=== PATIENT | female | born 1990 | race American Indian/Alaskan Native ===

== ENCOUNTER 2019-01-29 01:27 | Outpatient (CLI) | payer BC ==
[2019-01-29] MEDS ORDERED: LACTATED RINGERS 1,000 ML IV ONE (02:08)
[2019-01-29 02:34] LABS: Bilirubin,Urine NEG (Negative); Blood,Urine NEG (Negative); Color,Urine Yellow (Yellow); Protein,Urine <15 mg/dL mg/dL (Negative); Urobilinogen,Urine < 2.0 mg/dL (<2.0)
--- NOTE | 2019-01-29 04:08 | Ultrasound Report ---
Limited OB Ultrasound Biophysical profile HISTORY: decrease movement. TECHNIQUE: Grayscale and color Doppler imaging performed. COMPARISON: None FINDINGS: There is a single viable intrauterine gestation which is breech in presentation. Heart rate is 127 bpm. TREVIN is 14.4. Placenta is positioned anteriorly with no evidence of placenta previa. The umbilical cord appears to be wrapped around the neck. Gestational age was not determined on thi s examination. On biophysical profile, the fetus received a score of 2 for movement, posture, and TREVIN. There w as a score of 0 out of 2 for breathing movement. Total score was 6 out of 8. IMPRESSION: 1. Single viable intrauterine gestation as above. 2. Nuchal umbilical cord. 3. Biophysical profile score 6 out of 8, with no breathing movement demonstrated for at least 3 0 seconds in a 30 minute interval. Signer Name: González Argueta MD Signed: 01/29/2019 4:04 AM Workstation Name: [id number]
[2019-01-29 09:23] VITALS: BP 107/53
--- NOTE | 2019-01-29 13:35 | Ultrasound Report ---
ULTRASOUND BIOPHYSICAL PROFILE INDICATION: REPEAT BPP. well-being COMPARISON: 01/29/2019 at 0221 hours FINDINGS: heart rate is 133 beats per minute. breathing movement = 2 Gross body movement = 2 tone = 2 Qualitative amniotic fluid volume = 2 IMPRESSION: biophysical profile = 01/23 Signer Name: Srinath Cunha Jr, MD Signed: 01/29/2019 1:30 PM Workstation Name: [id number]
== END 2019-01-29 13:15 | disposition home or self-care (01) ==
LOC: TRG 01:27 → LD 04:18 → TRG 13:15
PROVIDERS: ATTEND Obstetrics & Gynecology
DX: O47.03 False labor before 37 completed weeks of gestation, third trimester (principal); Z3A.32 32 weeks gestation of pregnancy
CPT/HCPCS: 59025; 76815; 76819; 81001

== ENCOUNTER 2019-03-16 22:12 | Inpatient (IN) | payer BC ==
[2019-03-16] MEDS ORDERED: DINOPROSTONE 10 MG VAG SUPP VG ONE (23:30)
[2019-03-16 23:47] LABS: Basophils % (Auto) 0.3 % (0.0-1.8); Eosinophils # (Auto) 0.1 K/mm3 (0.0-0.4); Eosinophils % (Auto) 0.8 % (0.0-4.3); Hematocrit 33.6 % (30.3-42.9); Hemoglobin 11.5 gm/dl (10.1-14.3); Lymphocytes % (Auto) 22.9 % (13.4-35.0); Mean Corpuscular HGB Conc 34 % (30-34); Mean Corpuscular Volume 88 fl (79-97); Monocytes # (Auto) 0.8 K/mm3 (0.0-0.8); Monocytes % (Auto) 9.4 % (0.0-7.3); Platelet Count 204 K/mm3 (140-440); Red Cell Distribution Width 14.7 % (13.2-15.2)
[2019-03-17] MEDS ORDERED: LACTATED RINGERS 1,000 ML ONE ×3 (05:39→08:26)
--- NOTE | 2019-03-17 09:21 | History and Physical Report ---
History of Present Illness Date of examination: 03/17/19 Date of admission: 03/16/19 22:12 Chief complaint: 03/17/19 History of present illness: This is a 28 yo at 39 weeks for IOL for Morbid obesity. She has hx of carrier for alpha thall. 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 Past History Past Medical History: no pertinent history Past Surgical History: no surgical history [employer] History: herpes Family/Genetic History: none Social history: single. denies: smoking, alcohol abuse, prescription drug abuse - Obstetrical History Expected Date of Delivery: 03/21/19 Actual Gestation: 39 Week(s) 3 Day(s) : 4 Para: 2 Hx # Term Pregnancies: 2 Number of Pregnancies: 0 Spontaneous Abortions: 1 Induced : 0 Number of Living Children: 2 Medications and Allergies Allergies Allergy/AdvReac Type Severity Reaction Status Date / Time No Known Allergies Allergy Verified 04/29/14 07:51 Home Medications Medication Instructions Recorded Confirmed Last Taken Type Vit-Fe Fumar-FA [ 1 tab PO DAILY 01/29/19 01/29/19 01/27/19 History Vitamin] Review of Systems All systems: negative - Vital Signs Vital signs: Vital Signs Temp Resp 98.9 F 18 03/16/19 22:45 03/16/19 22:45 Temp Pulse Resp BP Pulse Ox 98.9 F 75 16 97/55 0 L 03/16/19 22:45 03/17/19 08:41 03/17/19 05:00 03/17/19 08:41 03/17/19 08:27 - Physical Exam Breasts: Positive: normal Cardiovascular: Regular rate, Normal S1 Lungs: Positive: Clear to auscultation, Normal air movement Abdomen: Positive: normal appearance, soft, normal bowel sounds. Negative: distention, tenderness, guarding Genitourinary (Female): Positive: normal external genitalia, normal perenium Vagina: Positive: normal moisture Uterus: Positive: normal size, normal contour Extremities: Positive: normal Deep Tendon Reflex Grade: Normal +2 - Obstetrical FHR: category 1 Cervical Dilatation: 0.5 Uterine Contraction Pattern: Irregular Uterine Tone Measurement Phase: Resting Results Result Diagrams: 03/16/19 23:05 Abnormal lab results 03/16/19 Range/Units 23:05 [place] % (Auto) 9.4 H (0.0-7.3) % All other labs normal. Assessment and Plan A/P HD#1 IOL for MO s/p cervidil hsv2 - no lesions expect vaginal delivery
[2019-03-17] MEDS ORDERED: LACTATED RINGERS 1,000 ML IV SCH (10:00)
[2019-03-17] MEDS ORDERED: OXYTOCIN 20 UNIT/1000ML DRIP 20 UNITS/1,000 ML BAG IV SCH (10:00)
[2019-03-17] MEDS ORDERED: OXYTOCIN DRIP 30 UNITS/500 ML BAG IV SCH (10:00)
[2019-03-17] MEDS ORDERED: BUTORPHANOL 2 MG/1 ML INJ IV PRN (10:30)
[2019-03-17] MEDS ORDERED: LIDOCAINE (2%) 20 MG/1 ML VIAL 20 ML MDV INFILTRATI NR (10:30)
[2019-03-17] MEDS ORDERED: NalbUPHINE 10 MG/1 ML INJ IV PRN (10:30)
[2019-03-17] MEDS ORDERED: TERBUTALINE 1 MG/1 ML INJ SUB-Q PRN (10:30)
[2019-03-17] MEDS ORDERED: fentaNYL 100 MCG/2 ML INJ IV PRN (10:30)
[2019-03-17] MEDS ORDERED: ePHEDrine SULFATE 50 MG/1 ML INJ IV PRN (10:30)
[2019-03-17] MEDS ORDERED: TERBUTALINE 1 MG/1 ML INJ IVP PRN (10:30)
[2019-03-17] MEDS ORDERED: ONDANSETRON 4 MG/2 ML INJ IV PRN (10:30)
[2019-03-17] MEDS ORDERED: MINERAL OIL 30 ML ORAL LIQD PO PRN (10:30)
[2019-03-17] MEDS ORDERED: AMPICILLIN/NS 2 GM/100 ML 2 GM/100 ML BAG IV ONE ×2 (11:00→17:53)
[2019-03-17] MEDS ORDERED: DINOPROSTONE 10 MG VAG SUPP VG ONE (17:50)
[2019-03-18] MEDS: AMPICILLIN/NS 1 GM/50 ML 1 GM/50 ML BAG IV SCH ×2 (10:44→14:03)
[2019-03-18] MEDS ORDERED: NALOXONE 2 MG/2 ML INJ IV PRN (12:15)
[2019-03-18] MEDS ORDERED: ePHEDrine SULFATE 50 MG/1 ML INJ IV PRN (12:15)
[2019-03-18] MEDS ORDERED: BUPIVACAINE/PF (0.25%) 2.5 MG/ML 10 ML VIAL INFILTRATI ONE (12:15)
--- NOTE | 2019-03-18 12:17 | Anesthesia Day of Surgery ---
Anesthesia Day of Surgery - Day of Surgery Patient Examined: Yes Patient H&P Reviewed: Yes Patient is NPO: Yes
[2019-03-18] MEDS ORDERED: fentaNYL-BUPIV 2 MCG/ML-0.125% 200 MCG/100 ML BAG EPIDURAL SCH (13:00)
[2019-03-18] MEDS ORDERED: diphenhydrAMINE 25 MG CAP PO PRN (13:22)
[2019-03-18] MEDS ORDERED: oxyCODONE /ACETAMINOPHEN 5-325MG TAB PO PRN (15:53)
[2019-03-18] MEDS ORDERED: ONDANSETRON 4 MG/2 ML INJ IV PRN (15:53)
[2019-03-18] MEDS ORDERED: SENNOSIDES 8.6 MG TAB PO PRN (15:53)
[2019-03-18] MEDS ORDERED: MAGNESIUM HYDROXIDE (MOM) ORAL LIQD UDC PO PRN (15:53)
[2019-03-18] MEDS ORDERED: PROMETHAZINE 25 MG RECT SUPP PR PRN (15:53)
[2019-03-18] MEDS ORDERED: HYDROCORTISONE 25 MG RECTAL SUPP PR PRN (15:53)
[2019-03-18] MEDS ORDERED: NALOXONE 0.4 MG/1 ML INJ IV PRN ×2 (15:53)
[2019-03-18] MEDS ORDERED: ACETAMINOPHEN 325 MG TAB PO PRN (15:53)
[2019-03-18] MEDS ORDERED: HYDROcodone/ACETAMINOPHEN 5-325 MG TAB PO PRN (15:53)
[2019-03-18] MEDS ORDERED: KETOROLAC 30 MG/1 ML INJ IV PRN ×2 (15:53)
[2019-03-18] MEDS ORDERED: LANOLIN/ZINC/DIMETHICONE (LANSINOH) 7 GM TP PRN (15:53)
[2019-03-18] MEDS ORDERED: SIMETHICONE 80 MG CHEW TAB PO PRN (15:53)
[2019-03-18] MEDS ORDERED: MORPHINE 2 MG/1 ML INJ IV PRN (15:53)
[2019-03-18] MEDS ORDERED: MORPHINE 4 MG/1 ML INJ IV PRN (15:53)
[2019-03-18] MEDS ORDERED: WITCH HAZEL/ GLYCERIN PAD TP PRN (15:53)
--- NOTE | 2019-03-18 15:59 | Procedure Note ---
OB Delivery Note - Delivery Date of Delivery: 03/18/19 Surgeon: SAVANA WHITT Estimated blood loss: 500cc - Vaginal Delivery presentation: vertex Delivery position: OA Delivery induction: cervidil Delivery augmentation: rupture of membranes, pitocin Delivery monitor: external FHT, external uterine Route of delivery: Delivery placenta: spontaneous Episiotomy: none Delivery laceration: none Anesthesia: none Delivery comments: of a vigorous term 6 lbs 12 oz female on 03/18/19 @ 1534. Baby placed [id number] on maternal abdomen and dried. Cord blood collected. Spontaneous delivery of placenta. Small lochia present. Fundal massage and IV PItocin bolus initiated. Fundus F/ML/U-2. Placenta intact; was sent for anylysis to assess for abruption ( many clots) Perineum intact. Patient tolerated the procedure well. Mom and baby in stable condition. - A at 1 minute: 8 at 5 minutes: 9 Gender: Female (6 pounds 12 oz)
[2019-03-18] MEDS ORDERED: OXYTOCIN 20 UNIT/1000ML DRIP 20 UNITS/1,000 ML BAG IV SCH (16:00)
[2019-03-18] MEDS ORDERED: METHYLERGONOVINE MALEATE 0.2 MG/ML VIAL IM ONE (16:28)
[2019-03-18] MEDS: IBUPROFEN 800 MG TAB PO PRN (21:20)
[2019-03-19 04:14] LABS: Hematocrit 30.7 % (30.3-42.9); Hemoglobin 10.2 gm/dl (10.1-14.3)
[2019-03-19] MEDS: IBUPROFEN 800 MG TAB PO PRN ×3 (05:26→18:04)
[2019-03-19] MEDS ORDERED: TETANUS,DIPH,PERTUSS(ACELL) VACCINE 0.5 ML SYRINGE IM ONE (06:00)
--- NOTE | 2019-03-19 07:54 | Progress Note ---
Assessment and Plan PPD1 s/p One elevated BP , mild range, all else wnl Mild anemia Anticipate d/c to home tomorrow Subjective - Subjective Date of service: 03/19/19 Principal diagnosis: Interval history: Pt is PPD1 s/p . She had one mild range elevated blood pressure reading , all else wnl. Patient reports: appetite normal, voiding normally, pain well controlled, ambulating normally [place]: doing well, nursing well, bottle feeding (primarily breast) Objective - Vital Signs Latest vital signs: Vital Signs Temp Pulse Resp BP BP Pulse Ox 03/19/19 00:00 98.4 F 66 18 121/74 03/18/19 21:00 98.7 F 78 18 126/73 03/18/19 19:23 98.3 F 78 18 146/59 98 03/18/19 18:41 62 112/62 03/18/19 18:26 64 108/58 03/18/19 18:11 67 115/55 03/18/19 17:56 63 113/56 03/18/19 17:41 76 118/56 03/18/19 17:26 76 116/59 03/18/19 17:12 80 117/58 03/18/19 17:01 77 111/72 03/18/19 16:56 67 111/53 03/18/19 16:41 68 120/57 03/18/19 16:26 70 122/56 03/18/19 16:12 78 122/59 03/18/19 16:08 18 135/64 03/18/19 15:59 75 135/64 03/18/19 15:47 121/59 03/18/19 15:41 81 126/68 03/18/19 15:37 74 99 03/18/19 15:34 86 03/18/19 15:32 75 100 03/18/19 15:28 74 124/63 03/18/19 15:27 71 99 03/18/19 15:22 68 99 03/18/19 15:17 67 99 03/18/19 15:12 72 99 03/18/19 15:11 77 116/56 03/18/19 15:07 77 98 03/18/19 15:02 69 99 03/18/19 14:57 72 115/57 98 03/18/19 14:52 71 99 03/18/19 14:48 97.8 F 03/18/19 14:47 69 100 03/18/19 14:44 73 105/51 03/18/19 14:42 72 100 03/18/19 14:37 74 99 03/18/19 14:32 63 99 03/18/19 14:27 65 113/67 99 03/18/19 14:22 62 98 03/18/19 14:17 71 97 03/18/19 14:12 62 99 03/18/19 14:11 66 117/62 03/18/19 14:07 88 99 03/18/19 14:02 62 98 03/18/19 13:57 61 99 03/18/19 13:56 65 116/62 03/18/19 13:52 63 98 03/18/19 13:47 67 99 03/18/19 13:43 64 114/61 03/18/19 13:42 69 99 03/18/19 13:37 71 98 03/18/19 13:32 67 99 03/18/19 13:29 64 116/71 03/18/19 13:27 71 98 03/18/19 13:22 68 99 03/18/19 13:17 77 97 03/18/19 13:12 83 110/59 97 03/18/19 13:07 73 99 03/18/19 13:02 68 99 03/18/19 12:57 71 98 03/18/19 12:56 74 109/56 03/18/19 12:52 72 99 03/18/19 12:47 82 98 03/18/19 12:44 68 116/62 03/18/19 12:42 69 116/57 99 03/18/19 12:40 68 112/59 03/18/19 12:38 78 107/63 03/18/19 12:37 69 98 03/18/19 12:36 63 103/55 03/18/19 12:34 74 103/54 03/18/19 12:32 67 100/55 99 03/18/19 12:30 70 101/55 03/18/19 12:28 72 108/53 03/18/19 12:27 89 98 03/18/19 12:26 69 118/67 03/18/19 12:24 66 113/63 03/18/19 12:19 74 110/55 03/18/19 11:49 81 109/60 03/18/19 11:17 83 114/61 03/18/19 10:47 81 114/61 03/18/19 10:29 88 127/60 03/18/19 10:00 97.8 F 03/18/19 09:45 89 99 03/18/19 09:40 84 99 03/18/19 09:35 90 97 03/18/19 09:30 88 99 03/18/19 09:29 74 125/65 03/18/19 09:25 84 97 03/18/19 09:20 82 99 03/18/19 09:15 78 99 03/18/19 09:10 84 99 03/18/19 09:05 77 97 03/18/19 09:00 84 98 03/18/19 08:55 75 97 03/18/19 08:50 85 98 03/18/19 08:45 85 98 03/18/19 08:40 78 98 03/18/19 08:35 78 99 03/18/19 08:30 89 122/58 97 03/18/19 08:25 80 98 03/18/19 08:20 84 98 03/18/19 08:15 101 H 98 03/18/19 07:55 92 H 105/59 Intake and Output 03/18/19 03/18/19 03/19/19 15:59 23:59 07:59 Intake Total 50 300 Output Total 900 1200 Balance 50 -600 -1200 Intake: IV 50 AMPICILLIN/NS 1 GM/50 ML 50 1 gm In 50 ml @ 100 mls/ hr IV Q4H [facility] Rx#: [id number] Intake, Free Water 300 Output: Urine 900 1200 Indwelling Catheter 100 Void 800 1200 Other: Total, Output Amount 800 800 # Voids Void 1 1 Estimated Blood Loss 500 - Exam Lungs: Present: Normal air movement Abdomen: Present: normal appearance, soft Uterus: Present: normal, firm, fundal height below umbilicus Extremities: Present: normal
--- NOTE | 2019-03-19 07:57 | Discharge Summary ---
Providers - Providers Date of Admission: 03/16/19 22:12 Date of discharge: 03/20/19 Attending physician: BUBBA HERNANDEZ Primary care physician: BUBBA HERNANDEZ Hospitalization Reason for admission: induction of labor Delivery: Episiotomy: none Laceration: none Other procedures: none complications: none Discharge diagnosis: IUP at term delivered Hospital course: Pt presented for IOL and progressed to of viable . Placenta was sent to pathology to rule out abruption due to multiple clots. 1 mild range BP , all rest normotensive. She met discharge criteria on PPD1. Condition at discharge: Good Disposition: DC-01 TO HOME OR SELFCARE Plan - Discharge Medications Prescriptions: Ibuprofen [Motrin] 600 mg PO Q8H PRN #30 tablet PRN Reason: Pain oxyCODONE /ACETAMINOPHEN [Percocet 5/325] 1 tab PO Q6HR PRN #30 tablet PRN Reason: Pain - Provider Discharge Summary Activity: routine, no sex for 6 weeks, no heavy lifting 4 weeks Diet: routine Instructions: routine Additional instructions: [] Smoking cessation referral if applicable(refer to patient education folder for contact #) [] Refer to [facility]'s [facility] Booklet Call your doctor immediately for: * Fever > 100.5 * Heavy vaginal bleeding ( >1 pad per hour) * Severe persistent headache * Shortness of breath * Reddened, hot, painful area to leg or breast * Drainage or odor from incision. * Keep incision clean and dry at all times and follow doctor's instructions regarding bathing/showering - Follow up plan Follow up: BUBBA HERNANDEZ MD [Primary Care Provider] - 6 Weeks (Please call [facility] dryout [facility] to schedule appointment.)
[2019-03-19] MEDS ORDERED: PRENATAL VIT27-FE FUMARATE-FOLIC ACID VIT TAB PO SCH (10:00)
[2019-03-19] MEDS ORDERED: FERROUS SULFATE 325 MG TAB PO SCH (10:00)
[2019-03-19] MEDS ORDERED: MEASLES, MUMPS & RUBELLA 12,500 UNIT/0.5 ML VACCINE SUB-Q ONE (15:56)
[2019-03-20] MEDS: IBUPROFEN 800 MG TAB PO PRN (00:25)
--- NOTE | 2019-03-20 08:40 | Progress Note ---
Assessment and Plan PPD2 s/p Vital signs stable Mild anemia Discharge to home today Subjective - Subjective Date of service: 03/20/19 Principal diagnosis: Interval history: Pt is PPD2 s/p Patient reports: appetite normal, voiding normally, pain well controlled, ambulating normally : doing well, nursing well Objective - Vital Signs Latest vital signs: Vital Signs Temp Pulse Resp BP Pulse Ox 03/20/19 01:25 18 03/20/19 00:25 18 03/20/19 00:24 98.2 F 78 20 99/54 96 03/19/19 17:43 97.8 F 95 H 18 115/69 96 03/19/19 12:46 98.5 F 18 126/54 03/19/19 08:52 98.0 F 72 18 98/39 99 Intake and Output 03/19/19 03/20/19 03/20/19 23:59 07:59 15:59 Intake Total 240 Balance 240 Intake: Intake, Free Water 240 Other: # Voids Void 1 - Exam Lungs: Present: Normal air movement Abdomen: Present: normal appearance, soft Uterus: Present: normal, firm, fundal height at umbilicus Extremities: Present: normal
[2019-03-20 09:20] VITALS: BP 113/50
== END 2019-03-20 10:30 | disposition home or self-care (01) | DRG 807 ==
LOC: LD 22:12 → OB 03-18 19:20
PROVIDERS: ADMIT Obstetrics & Gynecology; ATTEND Obstetrics & Gynecology
PROC: 10E0XZZ Delivery of Products of Conception, External Approach (ICD-10-PCS; principal; 2019-03-18)
PROC: 3E0P7VZ Introduction of Hormone into Female Reproductive, Via Natural or Artificial Opening (ICD-10-PCS; 2019-03-18)
PROC: 3E0234Z Introduction of Serum, Toxoid and Vaccine into Muscle, Percutaneous Approach (ICD-10-PCS; 2019-03-19)
DX: O99.214 Obesity complicating childbirth (principal); Z37.0 Single live birth; E66.01 Morbid (severe) obesity due to excess calories; O99.02 Anemia complicating childbirth; D64.9 Anemia, unspecified; Z3A.39 39 weeks gestation of pregnancy; Z71.3 Dietary counseling and surveillance; Z23 Encounter for immunization
CPT/HCPCS: 36415; 59200; 85014; 85018; 85025; 86592; 86850; 86900; 86901; 88307; 90471; 90715; G0378; A6250; J0290; J2210; J2590; J3010; J7120

== ENCOUNTER 2019-03-27 15:17 | Inpatient (IN) | payer BC ==
[2019-03-27] MEDS ORDERED: MAGNESIUM SULFATE 4 GM/100 ML BAG IV ONE (15:31)
[2019-03-27] MEDS ORDERED: hydrALAZINE 20 MG/1 ML INJ IV PRN (15:31)
--- NOTE | 2019-03-27 15:37 | History and Physical Report ---
History of Present Illness Date of examination: 03/27/19 Date of admission: 03/27/19 Chief complaint: Sent from [place] [facility] office for high blood pressure History of present illness: The patient is a 28 yo at 9 days . She had a complicated by hemorrhage. She presented to the [facility] office today reporting headache and elevated BP reading at home. Her blood pressure at the office was found to be 200/110. Headache is not relieved by Ibuprofen. Her course was complicated by obesity. She had one mild range elevated BP . 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 History: gonorrhea, herpes, trichomonas Family/Genetic History: hypertension, sickle cell/trait (trait), other (thyroid disease) Social history: no significant social history - Obstetrical History : 4 Para: 3 Hx # Term Pregnancies: 3 Spontaneous Abortions: 1 Number of Living Children: 3 Medications and Allergies Allergies Allergy/AdvReac Type Severity Reaction Status Date / Time No Known Allergies Allergy Verified 04/29/14 07:51 Home Medications Medication Instructions Recorded Confirmed Last Taken Type Vit-Fe Fumar-FA [ 1 tab PO DAILY 01/29/19 03/17/19 03/16/19 History Vitamin] Ibuprofen [Motrin] 600 mg PO Q8H PRN #30 tablet 03/18/19 Unknown Rx oxyCODONE /ACETAMINOPHEN [Percocet 1 tab PO Q6HR PRN #30 tablet 03/18/19 Unknown Rx 5/325] Review of Systems All systems: negative Eyes: no other (scotomata) Cardiovascular: high blood pressure, no chest pain, no shortness of breath Respiratory: no shortness of breath Neurological: headaches - Physical Exam Lungs: Positive: Normal air movement Results All other labs normal. Assessment and Plan A: 28 yo at 9 days preeclampsia P: Admit for magnesium sulfate administration Rescue Labetalol/Hydralazine PRN PIH labs
[2019-03-27] MEDS ORDERED: MAGNESIUM SULFATE 40GM/1000ML 40 GM/1,000 ML BAG IV SCH (16:00)
[2019-03-27] MEDS ORDERED: CALCIUM GLUCONATE 1000 MG/10 ML INJ IV PRN (16:00)
[2019-03-27] MEDS ORDERED: LACTATED RINGERS 1,000 ML IV SCH (16:00)
[2019-03-27 17:54] LABS: Hematocrit 34.2 % (30.3-42.9); Hemoglobin 11.3 gm/dl (10.1-14.3); Mean Corpuscular HGB Conc 33 % (30-34); Mean Corpuscular Volume 89 fl (79-97); Platelet Count 173 K/mm3 (140-440); Red Blood Count 3.85 M/mm3 (3.65-5.03); Red Cell Distribution Width 14.9 % (13.2-15.2)
[2019-03-27 18:14] LABS: Alanine Aminotransferase 189 units/L (7-56); Uric Acid 6.3 mg/dL (3.5-7.6)
[2019-03-27 18:57] LABS: Bilirubin,Urine NEG (Negative); Blood,Urine NEG (Negative); Color,Urine Straw (Yellow); Protein,Urine <15 mg/dL mg/dL (Negative); Urobilinogen,Urine < 2.0 mg/dL (<2.0); WBC,Urine < 1.0 /HPF (0.0-6.0)
[2019-03-27 19:14] LABS: Creatinine,Urine 43.7 mg/dL (0.1-20.0)
[2019-03-28] MEDS: IBUPROFEN 600 MG TAB PO PRN (03:24)
--- NOTE | 2019-03-28 08:48 | Progress Note ---
Assessment and Plan A: preeclampsia on Magnesium Sulfate for seizure prophylaxis P: Continue magnesium sulfate for 24 hrs. Plan to observe blood pressures tonight with anticipated discharge tomorrow. Subjective - Subjective Date of service: 03/28/19 Principal diagnosis: Preeeclampsia Interval history: Pt feeling better today. Denies headache, blurred vision or THOMAS pain. Tolerating magnesium well. Patient reports: appetite normal, no voiding normally (sotelo in place ) Objective - Vital Signs Latest vital signs: Vital Signs Temp Pulse Resp BP BP Pulse Ox 03/28/19 08:47 69 93 03/28/19 08:46 65 155/89 03/28/19 08:42 67 94 03/28/19 08:37 70 92 03/28/19 08:32 70 94 03/28/19 08:31 71 150/86 03/28/19 08:27 72 93 03/28/19 08:22 70 93 03/28/19 08:17 73 95 03/28/19 08:16 68 147/80 03/28/19 08:11 71 94 03/28/19 08:06 69 95 03/28/19 08:01 70 152/83 89 03/28/19 07:56 72 91 03/28/19 07:51 72 91 03/28/19 07:46 71 149/84 89 03/28/19 07:41 68 93 03/28/19 07:36 67 92 03/28/19 07:31 66 146/79 93 03/28/19 07:26 68 93 03/28/19 07:21 69 93 03/28/19 07:16 66 129/74 90 03/28/19 07:11 70 92 03/28/19 07:06 71 94 03/28/19 07:01 74 130/74 90 03/28/19 06:56 72 93 03/28/19 06:51 88 93 03/28/19 06:46 68 127/72 91 03/28/19 06:41 68 92 03/28/19 06:36 66 92 03/28/19 06:31 68 132/74 91 03/28/19 06:26 70 96 03/28/19 06:21 66 92 03/28/19 06:16 64 134/75 90 03/28/19 06:11 72 91 03/28/19 06:07 64 88 03/28/19 06:06 65 92 03/28/19 06:02 65 135/71 03/28/19 06:01 71 89 03/28/19 05:56 62 91 03/28/19 05:51 62 91 03/28/19 05:46 72 145/88 88 03/28/19 05:41 67 92 03/28/19 05:36 66 90 03/28/19 05:31 68 150/90 88 03/28/19 05:29 68 89 03/28/19 05:26 68 89 03/28/19 05:21 66 89 03/28/19 05:19 65 88 03/28/19 05:16 68 153/89 87 03/28/19 05:13 68 89 03/28/19 05:11 67 89 03/28/19 05:07 70 89 03/28/19 05:06 70 91 03/28/19 05:01 66 151/84 90 03/28/19 05:00 97 H 74 L 03/28/19 04:56 71 92 03/28/19 04:51 72 92 03/28/19 04:49 69 87 03/28/19 04:46 73 135/76 87 03/28/19 04:43 67 89 03/28/19 04:41 69 91 03/28/19 04:37 71 89 03/28/19 04:36 69 90 03/28/19 04:31 69 135/73 87 03/28/19 04:26 68 92 03/28/19 04:21 66 92 03/28/19 04:17 67 134/75 03/28/19 04:16 66 89 03/28/19 04:11 66 91 03/28/19 04:06 67 90 03/28/19 04:01 63 139/77 85 03/28/19 03:56 65 91 03/28/19 03:51 65 90 03/28/19 03:46 66 145/80 89 03/28/19 03:44 73 91 03/28/19 03:41 61 93 03/28/19 03:36 63 94 03/28/19 03:31 63 156/97 92 03/28/19 03:28 64 93 03/28/19 03:26 63 95 03/28/19 03:23 60 91 03/28/19 03:21 59 L 91 03/28/19 03:16 64 155/94 92 03/28/19 03:11 64 90 03/28/19 03:06 61 90 03/28/19 03:01 72 158/93 88 03/28/19 02:56 69 91 03/28/19 02:51 72 89 03/28/19 02:46 69 154/88 88 03/28/19 02:41 66 90 03/28/19 02:36 66 91 03/28/19 02:32 78 93 03/28/19 02:31 90 144/90 90 03/28/19 02:26 68 91 03/28/19 02:21 66 92 03/28/19 02:16 66 142/87 91 03/28/19 02:15 66 92 03/28/19 02:11 68 92 03/28/19 02:06 67 92 03/28/19 02:03 82 0 L 03/28/19 02:01 63 135/76 90 03/28/19 01:56 64 92 03/28/19 01:51 62 92 03/28/19 01:50 64 132/71 03/28/19 01:46 68 89 03/28/19 01:41 69 93 03/28/19 01:40 70 93 03/28/19 01:36 71 92 03/28/19 01:31 69 127/69 89 03/28/19 01:26 64 92 03/28/19 01:21 69 92 03/28/19 01:16 72 136/72 91 03/28/19 01:11 63 94 03/28/19 01:05 61 92 03/28/19 01:01 60 145/75 03/28/19 01:00 60 91 03/28/19 00:57 64 93 03/28/19 00:55 63 91 03/28/19 00:50 64 91 03/28/19 00:46 63 145/73 03/28/19 00:45 65 91 03/28/19 00:40 63 90 03/28/19 00:35 61 90 03/28/19 00:31 59 L 148/73 03/28/19 00:30 61 90 03/28/19 00:25 62 90 03/28/19 00:20 59 L 91 03/28/19 00:16 57 L 147/73 03/28/19 00:15 60 92 03/28/19 00:10 77 93 03/28/19 00:03 58 L 91 03/28/19 00:02 59 L 151/72 03/28/19 00:01 92 03/27/19 23:58 59 L 91 03/27/19 23:53 58 L 91 03/27/19 23:48 57 L 91 03/27/19 23:47 57 L 152/73 92 03/27/19 23:43 57 L 91 03/27/19 23:38 58 L 92 03/27/19 23:33 60 93 03/27/19 23:32 60 157/74 03/27/19 23:28 61 91 03/27/19 23:27 76 92 03/27/19 23:23 57 L 93 03/27/19 23:21 60 93 03/27/19 23:18 58 L 95 03/27/19 23:17 61 170/90 03/27/19 23:15 61 93 03/27/19 23:13 61 94 03/27/19 23:09 64 93 03/27/19 23:08 63 94 03/27/19 23:03 59 L 94 03/27/19 23:02 61 153/79 03/27/19 23:01 77 93 03/27/19 22:58 62 94 03/27/19 22:56 62 93 03/27/19 22:53 60 93 03/27/19 22:51 61 93 03/27/19 22:48 60 94 03/27/19 22:46 59 L 160/83 03/27/19 22:45 60 93 03/27/19 22:43 61 94 03/27/19 22:39 64 93 03/27/19 22:38 62 93 03/27/19 22:33 59 L 93 03/27/19 22:32 59 L 93 03/27/19 22:31 60 158/82 03/27/19 22:28 63 94 03/27/19 22:23 60 93 03/27/19 22:18 60 94 03/27/19 22:16 58 L 154/81 93 03/27/19 22:13 65 95 03/27/19 22:08 76 96 03/27/19 22:04 62 94 03/27/19 22:03 72 92 10/10/19 22:01 55 L 144/70 03/27/19 21:58 60 92 03/27/19 21:53 58 L 93 03/27/19 21:48 60 94 03/27/19 21:47 60 142/67 03/27/19 21:44 94 03/27/19 21:43 59 L 93 03/27/19 21:38 60 92 03/27/19 21:37 59 L 94 03/27/19 21:33 67 92 03/27/19 21:32 60 94 03/27/19 21:31 62 149/72 03/27/19 21:28 60 95 03/27/19 21:25 61 94 03/27/19 21:23 60 95 03/27/19 21:18 60 95 03/27/19 21:17 58 L 153/72 03/27/19 21:13 58 L 95 03/27/19 21:08 59 L 95 03/27/19 21:07 60 94 03/27/19 21:03 58 L 95 03/27/19 21:02 64 143/82 03/27/19 21:00 60 94 03/27/19 20:58 59 L 95 03/27/19 20:53 58 L 96 03/27/19 20:48 61 96 03/27/19 20:47 57 L 151/73 91 03/27/19 20:43 59 L 95 03/27/19 20:38 58 L 95 03/27/19 20:37 57 L 94 03/27/19 20:33 58 L 160/74 95 03/27/19 20:32 59 L 164/69 03/27/19 20:31 59 L 93 03/27/19 20:28 56 L 95 03/27/19 20:23 55 L 95 03/27/19 20:22 54 L 94 03/27/19 20:18 55 L 96 03/27/19 20:17 53 L 149/84 03/27/19 20:16 53 L 94 03/27/19 20:13 54 L 96 03/27/19 20:08 53 L 95 03/27/19 20:03 54 L 95 03/27/19 20:02 58 L 139/65 03/27/19 20:01 52 L 94 03/27/19 19:58 51 L 96 03/27/19 19:53 59 L 97 03/27/19 19:48 52 L 96 03/27/19 19:47 56 L 146/85 03/27/19 19:43 52 L 96 03/27/19 19:38 50 L 97 03/27/19 19:35 98.1 F 58 L 18 144/75 96 03/27/19 19:31 58 L 144/75 03/27/19 19:16 54 L 151/80 03/27/19 19:01 51 L 149/76 03/27/19 18:47 55 L 144/73 03/27/19 18:32 52 L 142/71 03/27/19 18:17 51 L 150/75 03/27/19 18:01 51 L 160/78 03/27/19 17:56 50 L 157/77 03/27/19 17:51 49 L 166/80 03/27/19 17:46 51 L 161/77 03/27/19 17:41 49 L 154/73 03/27/19 17:37 53 L 166/75 03/27/19 17:31 51 L 138/81 03/27/19 17:26 53 L 143/69 03/27/19 17:21 51 L 143/74 03/27/19 17:16 55 L 140/74 03/27/19 17:12 49 L 156/104 03/27/19 17:01 43 L 159/73 03/27/19 16:46 49 L 147/71 03/27/19 16:30 49 L 162/93 03/27/19 16:15 47 L 170/92 03/27/19 16:00 47 L 169/90 Intake and Output 03/27/19 03/28/19 03/28/19 22:59 06:59 14:59 Output Total 2600 3300 500 Balance -2600 -3300 -500 Output: Urine 2600 3300 500 Indwelling Catheter 2500 3300 500 Uretheral (Sotelo) 100 Other: Total, Output Amount 500 400 300 Weight 120.202 kg - Exam Breasts: Present: deferred Cardiovascular: Present: Regular rate Lungs: Present: Clear to auscultation Abdomen: Present: soft (obese) Extremities: Present: edema (trace) - Labs Labs: Abnormal lab results 10/04/0503/27/19 03/28/19 Range/Units 16:33 17:15 00:06 Creatinine 0.6 L (0.7-1.2) mg/dL Magnesium 4.80 H (1.7-2.3) mg/dL AST 59 H (5-40) units/L ALT 189 H (7-56) units/L Lactate Dehydrogenase 336 H (91-180) units/L Urine Creatinine 43.7 H (0.1-20.0) mg/dL Urine Total Protein 14 H (5-11.8) mg/dL 03/28/19 Range/Units 05:39 Creatinine (0.7-1.2) mg/dL Magnesium 5.50 H (1.7-2.3) mg/dL AST (5-40) units/L ALT (7-56) units/L Lactate Dehydrogenase (91-180) units/L Urine Creatinine (0.1-20.0) mg/dL Urine Total Protein (5-11.8) mg/dL
[2019-03-28 17:28] LABS: Hematocrit 38.3 % (30.3-42.9); Hemoglobin 12.6 gm/dl (10.1-14.3); Mean Corpuscular HGB Conc 33 % (30-34); Mean Corpuscular Volume 89 fl (79-97); Platelet Count 207 K/mm3 (140-440); Red Cell Distribution Width 14.8 % (13.2-15.2)
[2019-03-28 17:50] LABS: Alanine Aminotransferase 148 units/L (7-56); Uric Acid 6.9 mg/dL (3.5-7.6)
[2019-03-29] MEDS: IBUPROFEN 600 MG TAB PO PRN (00:23)
--- NOTE | 2019-03-29 08:15 | Progress Note ---
Assessment and Plan - Patient Problems (1) Preeclampsia in period Current Visit: Yes Status: Acute Plan to address problem: patient doing well discharge home today Subjective - Subjective Date of service: 03/29/19 Principal diagnosis: Preeeclampsia Interval history: Patient completed her magnesium. Has had improvement in blood pressures. Patient without complaints Patient reports: appetite normal, voiding normally, pain well controlled Objective - Vital Signs Latest vital signs: Vital Signs Temp Pulse Resp BP BP Pulse Ox 03/29/19 04:00 98 F 72 16 138/71 03/29/19 00:00 98.7 F 69 19 143/75 03/28/19 20:00 98.8 F 71 18 144/76 03/28/19 19:24 89 145/95 03/28/19 18:25 98.4 F 89 18 145/95 100 03/28/19 17:56 69 94 03/28/19 17:51 70 94 03/28/19 17:47 67 153/85 03/28/19 17:46 69 95 03/28/19 17:41 71 95 03/28/19 17:36 71 95 03/28/19 17:33 70 138/72 03/28/19 17:31 71 93 03/28/19 17:26 82 94 03/28/19 17:21 81 93 03/28/19 17:09 80 86 03/28/19 17:04 82 94 03/28/19 17:01 80 138/84 03/28/19 16:59 87 96 03/28/19 16:54 80 95 03/28/19 16:49 82 93 03/28/19 16:46 78 135/77 03/28/19 16:44 86 96 03/28/19 16:39 86 94 03/28/19 16:34 97 H 81 L 03/28/19 16:31 78 148/84 03/28/19 16:29 84 95 03/28/19 16:24 87 95 03/28/19 16:19 75 95 03/28/19 16:16 73 144/81 03/28/19 16:14 73 95 03/28/19 16:08 81 95 03/28/19 16:03 76 95 03/28/19 16:01 76 138/82 03/28/19 15:58 80 95 03/28/19 15:53 74 95 03/28/19 15:48 73 95 03/28/19 15:47 72 137/84 03/28/19 15:43 87 94 03/28/19 15:38 64 92 03/28/19 15:33 61 94 03/28/19 15:31 61 149/87 03/28/19 15:28 60 95 03/28/19 15:23 68 94 03/28/19 15:18 64 95 03/28/19 15:16 65 144/84 03/28/19 15:13 67 95 03/28/19 15:08 67 94 03/28/19 15:03 72 95 03/28/19 15:01 65 142/83 03/28/19 14:58 67 96 03/28/19 14:53 66 94 03/28/19 14:48 64 94 03/28/19 14:46 67 141/81 03/28/19 14:43 66 94 03/28/19 14:38 68 95 03/28/19 14:33 71 93 03/28/19 14:31 75 137/76 03/28/19 14:28 76 95 03/28/19 14:23 67 93 03/28/19 14:18 65 93 03/28/19 14:16 68 134/76 03/28/19 14:13 68 93 03/28/19 14:08 66 93 03/28/19 14:03 63 92 03/28/19 14:01 67 136/78 03/28/19 13:58 62 92 03/28/19 13:53 63 94 03/28/19 13:48 64 94 03/28/19 13:46 70 132/76 03/28/19 13:43 69 94 03/28/19 13:37 63 93 03/28/19 13:36 83 73 L 03/28/19 13:33 67 94 03/28/19 13:31 67 144/78 03/28/19 13:28 68 84 03/28/19 13:25 65 153/95 03/28/19 13:23 68 93 03/28/19 13:17 78 94 03/28/19 13:16 67 162/97 03/28/19 13:12 69 93 03/28/19 13:07 68 94 03/28/19 13:02 66 94 03/28/19 13:01 65 161/95 03/28/19 12:57 65 94 03/28/19 12:52 66 94 03/28/19 12:47 75 95 03/28/19 12:46 65 157/92 03/28/19 12:42 68 96 03/28/19 12:37 75 97 03/28/19 12:32 70 96 03/28/19 12:31 71 155/90 03/28/19 12:27 79 95 03/28/19 12:22 77 94 03/28/19 12:17 71 95 03/28/19 12:16 69 149/85 03/28/19 12:12 74 95 03/28/19 12:07 74 94 03/28/19 12:02 71 97 03/28/19 12:01 71 158/88 03/28/19 11:57 81 95 03/28/19 11:52 79 96 03/28/19 11:47 76 95 03/28/19 11:46 71 142/83 03/28/19 11:42 79 96 03/28/19 11:40 73 148/80 03/28/19 11:37 80 95 03/28/19 11:32 77 162/83 95 03/28/19 11:27 73 93 03/28/19 11:22 81 94 03/28/19 11:17 74 92 03/28/19 11:16 74 132/72 03/28/19 11:12 72 93 03/28/19 11:07 72 93 03/28/19 11:02 73 93 03/28/19 11:01 73 136/72 03/28/19 10:57 74 93 03/28/19 10:52 69 94 03/28/19 10:47 70 133/72 94 03/28/19 10:42 72 93 03/28/19 10:37 77 94 03/28/19 10:32 73 95 03/28/19 10:31 77 141/78 03/28/19 10:27 73 94 03/28/19 10:22 90 92 03/28/19 10:17 73 90 03/28/19 10:16 78 129/70 03/28/19 10:12 72 94 03/28/19 10:07 69 95 03/28/19 10:02 71 91 03/28/19 10:01 68 135/70 03/28/19 09:57 69 90 03/28/19 09:52 68 90 03/28/19 09:47 71 91 03/28/19 09:46 68 128/65 88 03/28/19 09:42 67 90 03/28/19 09:41 71 89 03/28/19 09:37 69 91 03/28/19 09:35 66 87 03/28/19 09:32 68 90 03/28/19 09:31 66 138/73 03/28/19 09:29 66 89 03/28/19 09:27 66 90 03/28/19 09:24 71 89 03/28/19 09:22 67 90 03/28/19 09:18 68 89 03/28/19 09:17 71 133/76 90 03/28/19 09:13 68 89 03/28/19 09:12 67 90 03/28/19 09:08 70 89 03/28/19 09:07 68 89 03/28/19 09:03 90 78 L 03/28/19 09:02 69 94 03/28/19 09:01 67 150/87 03/28/19 08:57 69 93 03/28/19 08:52 68 94 03/28/19 08:47 69 93 03/28/19 08:46 65 155/89 03/28/19 08:42 67 94 03/28/19 08:37 70 92 03/28/19 08:32 70 94 03/28/19 08:31 71 150/86 03/28/19 08:27 72 93 03/28/19 08:22 70 93 03/28/19 08:17 73 95 03/28/19 08:16 68 147/80 Intake and Output 03/28/19 03/29/19 03/29/19 22:59 06:59 14:59 Intake Total 300 300 Output Total 1000 Balance -700 300 Intake: Intake, Free Water 300 300 Output: Urine 1000 Indwelling Catheter 1000 Other: Total, Output Amount 250 Voiding Method Toilet # Voids Void 1 - Labs Labs: Abnormal lab results 03/28/19 03/28/19 Range/Units 12:26 17:09 Creatinine 0.6 L (0.7-1.2) mg/dL Magnesium 5.40 H 4.50 H (1.7-2.3) mg/dL AST 45 H (5-40) units/L ALT 148 H (7-56) units/L Lactate Dehydrogenase 369 H (91-180) units/L
--- NOTE | 2019-03-29 08:17 | Discharge Summary ---
Providers - Providers Date of Admission: 03/27/19 15:50 Date of discharge: 03/29/19 Attending physician: VIOLETA BISHOP Primary care physician: VIOLETA BISHOP Hospitalization Reason for admission: other ( preeclampsia) Discharge diagnosis: other ( preeclampsia) Hospital course: Patient admitted for treatment of preeclampsia. s/p magnesium therapy. Improvement with po antihypertensive meds Condition at discharge: Good Disposition: DC-01 TO HOME OR SELFCARE - Discharge Diagnoses (1) Preeclampsia in period Status: Acute Plan - Discharge Medications Prescriptions: Labetalol [Labetalol 200mg TAB] 200 mg PO BID #60 tablet - Provider Discharge Summary Activity: no sex for 6 weeks, no heavy lifting 4 weeks, no strenuous exercise Diet: routine Instructions: routine Additional instructions: [] Smoking cessation referral if applicable(refer to patient education folder for contact #) [] Refer to [facility] Booklet Call your doctor immediately for: * Fever > 100.5 * Heavy vaginal bleeding ( >1 pad per hour) * Severe persistent headache * Shortness of breath * Reddened, hot, painful area to leg or breast * schedule blood pressure check in one week - Follow up plan Follow up: VIOLETA BISHOP MD [Primary Care Provider] - 7 Days
[2019-03-29 14:11] VITALS: BP 120/67
== END 2019-03-29 17:15 | disposition home or self-care (01) | DRG 776 ==
LOC: UNDOADMIN 15:17 → 3A 15:17 → LD 15:50 → OB 03-28 18:46
PROVIDERS: ADMIT Obstetrics & Gynecology; ATTEND Obstetrics & Gynecology
DX: O14.95 Unspecified pre-eclampsia, complicating the puerperium (principal); O99.215 Obesity complicating the puerperium; Z82.49 Family history of ischemic heart disease and other diseases of the circulatory system; Z79.899 Other long term (current) drug therapy
CPT/HCPCS: 36415; 81001; 82565; 82570; 83615; 83735; 84156; 84450; 84460; 84550; 85027; G0378; J0610; J3475; J7120